=== PATIENT | male | born 1985 | race African-American/Black ===

== ENCOUNTER 2018-09-29 14:18 | Emergency (ER) | payer MEDICAID ==
[~2018-09-29] VITALS: Ht 185.4 cm; Wt 72.6 kg
[2018-09-29 14:54] VITALS: BP 119/79
[2018-09-29] MEDS ORDERED: IBUPROFEN 800 MG TAB PO ONE (15:30)
[2018-09-29] MEDS ORDERED: METHOCARBAMOL 500 MG TAB PO ONE (15:30)
== END 2018-09-29 15:55 | disposition home or self-care (01) ==
LOC: ER 14:25 → EDBD 14:25 → ER 15:54
DX: S13.4XXA Sprain of ligaments of cervical spine, initial encounter (principal); M54.6 Pain in thoracic spine; V49.19XA Passenger injured in collision with other motor vehicles in nontraffic accident, initial encounter; Y93.89 Activity, other specified; Y92.488 Other paved roadways as the place of occurrence of the external cause; Y99.8 Other external cause status
CPT/HCPCS: 72040